=== PATIENT | female | born 1945 | race Caucasian/White ===

== ENCOUNTER 2020-02-25 14:37 | Emergency (ER) | payer MEDICARE, BC ==
[~2020-02-25] VITALS: Ht 167.6 cm; Wt 59.1 kg
[2020-02-25 14:44] VITALS: BP 164/91; TEMP 98.5
[2020-02-25 15:19] LABS: BASO # 0.1 (0.0-0.2); BASO % 0.7 % (0.0-2.0); EOS # 0.1 (0.0-0.7); EOS % 0.7 % (0-4.0); GRAN # 6.3 (1.4-6.5); HEMATOCRIT 40.9 % (37.0-47.0); HEMOGLOBIN 13.4 g/dl (12.5-16.0); LYMPH # 1.3 (1.2-3.4); LYMPH % 14.5 % (20.0-51.0); MEAN CELL VOLUME 93 fl (80.0-100.0); MEAN CORPUSCULAR HEMOGLOBIN 31 pg (27.0-31.0); MEAN CORPUSCULAR HGB CONC 33 g/dl (33.0-37.0); MEAN PLATELET VOLUME 10.1 fl (7.4-10.4); MONO % 11.9 % (1.7-9.3); PLATELET COUNT 220 K/mm3 (130-400); REDCELL DISTRIBUTION WIDTH-CV 13.1 % (11.5-14.5)
[2020-02-25 15:29] LABS: ALBUMIN 4.2 gm/dL (3.5-5.0); BILIRUBIN,TOTAL 0.8 mg/dL (0.0-1.0); CREATININE, serum 0.73 (0.52-1.25); TOTAL PROTEIN 7.3 gm/dL (6.4-8.2)
[2020-02-25] MEDS ORDERED: NORCO 325 MG-51 TAB PO (16:04)
[2020-02-25] MEDS ORDERED: VALIUM 2MG T2 MG/TAB PO (16:04)
[2020-02-25 16:27] VITALS: PULSE 71
== END 2020-02-25 16:28 | disposition home or self-care (01) ==
LOC: COL.ER 14:37
PROVIDERS: Nurse Practitioner Primary Care
DX: M47.892 Other spondylosis, cervical region (principal); M79.2 Neuralgia and neuritis, unspecified
CPT/HCPCS: J1885; J3360